=== PATIENT | male | born 1940 | race Hispanic/Latino ===

== ENCOUNTER 2020-10-04 05:27 | Inpatient (IN) | payer MEDICARE ==
[2020-10-02 12:33] LABS: BASOPHILS # (AUTO) 0.1 (0.0-0.1); BASOPHILS % 0.7 % (0.0-1.0); EOSINOPHILS # (AUTO) 0.1 (0.0-0.4); EOSINOPHILS % 1.2 % (0.0-6.0); HEMOGLOBIN 14.5 g/dL (14.0-18.0); LYMPHOCYTES # (AUTO) 1.5 (1.0-3.2); LYMPHOCYTES % 19.4 % (18.0-39.1); MEAN CORPUSCULAR HEMOGLOBIN 29.8 pg (28-32); MEAN CORPUSCULAR HGB CONC 31.5 g/dL (31-35); MEAN CORPUSCULAR VOLUME 94.7 fL (81-99); MONOCYTES # (AUTO) 0.6 (0.2-0.8); MONOCYTES % 8.3 % (4.4-11.3); NEUTROPHILS # (AUTO) 5.4 (2.1-6.9); NEUTROPHILS % 70.1 % (38.7-80.0); PLATELET COUNT 136 x10e3/uL (140-360); RED BLOOD COUNT 4.86 x10e6/uL (4.3-5.7); RED CELL DISTRIBUTION WIDTH 13.5 % (11.7-14.4)
[2020-10-02 12:59] LABS: ANION GAP 14.2 mmol/L (8-16); CALCIUM 8.9 mg/dL (8.4-10.2); CREATININE, SERUM 1.65 mg/dL (0.72-1.25); POTASSIUM 5.2 mmol/L (3.5-5.1)
[2020-10-04] VITALS (11 sets, daily range): BP systolic 100–126; BP diastolic 51–58
[~2020-10-04] VITALS: Ht 177.8 cm
[~2020-10-04 05:27] MED LIST: ATORVASTATIN CA10 MG PO; FLOMAX0.4 MG PO; GLIPIZIDE ER2.5 MG PO; HYDRALAZINE HCL50 MG PO; LISINOPRIL10 MG PO; MELOXICAM7.5 MG PO; NEURONTIN100 MG PO; NIFEDIPINE10 MG PO; ULTRAM50 MG PO
[2020-10-04] MEDS ORDERED: PIPERACILLIN/TAZOBAC 3.375 GM VIAL ONE (06:10)
[2020-10-04] MEDS ORDERED: GENTAMICIN 80MG/NS 100 ML 200 ML IV ONE (06:10)
[2020-10-04] MEDS ORDERED: SODIUM CHLORIDE 0.9% 50ML 50 ML ONE (06:12)
[2020-10-04] MEDS ORDERED: IOPAMIDOL 300MG/ML 50ML INFUS..BTL IV ONE (08:27)
[2020-10-04] MEDS ORDERED: B&O 60MG R/S 60 MG SUPP PR ONE (08:27)
[2020-10-04] MEDS ORDERED: FENTANYL CITRATE/PF 100MCG/2 ML INJ ONE (11:58)
[2020-10-04] MEDS ORDERED: B&O 60MG R/S 60 MG SUPP PR PRN (12:00)
[2020-10-04] MEDS ORDERED: DIPHENHYDRAMINE HCL 25 MG CAP PO PRN (12:00)
[2020-10-04] MEDS ORDERED: ONDANSETRON HCL INJ 2MG/ML 2ML 2 MG/ML VIAL IV PRN (12:00)
[2020-10-04] MEDS ORDERED: ACETAMINOPHEN/CODEINE 300MG - 30MG TAB PO PRN (12:00)
[2020-10-04] MEDS ORDERED: PHENAZOPYRIDINE HCL 100 MG TAB PO PRN (12:00)
[2020-10-04] MEDS ORDERED: POVIDONE IODINE 0.05% 0.05 % ML PO ONE (12:21)
[2020-10-04] MEDS ORDERED: ROCURONIUM BROMIDE 10 MG/ML 5ML VIAL IV ONE (12:21)
[2020-10-04] MEDS ORDERED: LIDOCAINE HCL 2% LOCAL INJ 5 ML SDV VIAL INJ ONE (12:21)
[2020-10-04] MEDS ORDERED: ONDANSETRON HCL INJ 2MG/ML 2ML 2 MG/ML VIAL ONE (12:21)
[2020-10-04] MEDS ORDERED: PROPOFOL IV EMULSION 10 MG/ML 20 ML VIAL ONE (12:21)
[2020-10-04] MEDS ORDERED: NEOSTIGMINE 1 MG/ML 10ML VIAL ONE (12:21)
[2020-10-04] MEDS ORDERED: GLYCOPYRROLATE INJ 0.2 MG/ML VIAL ONE (12:21)
[2020-10-04] MEDS ORDERED: SEVOFLURANE INHAL SOLN 250 ML PEN BTL ONE (12:21)
[2020-10-04 13:10] LABS: BASOPHILS % 0.4 % (0.0-1.0); EOSINOPHILS # (AUTO) 0.1 (0.0-0.4); EOSINOPHILS % 1.9 % (0.0-6.0); HEMATOCRIT 44.5 % (38.2-49.6); HEMOGLOBIN 13.8 g/dL (14.0-18.0); LYMPHOCYTES # (AUTO) 1.7 (1.0-3.2); LYMPHOCYTES % 24.1 % (18.0-39.1); MEAN CORPUSCULAR HEMOGLOBIN 29.7 pg (28-32); MEAN CORPUSCULAR VOLUME 95.7 fL (81-99); MONOCYTES # (AUTO) 0.5 (0.2-0.8); MONOCYTES % 7.2 % (4.4-11.3); NEUTROPHILS # (AUTO) 4.6 (2.1-6.9); NEUTROPHILS % 66.1 % (38.7-80.0); PLATELET COUNT 117 x10e3/uL (140-360); RED BLOOD COUNT 4.65 x10e6/uL (4.3-5.7); RED CELL DISTRIBUTION WIDTH 13.7 % (11.7-14.4)
[2020-10-04 13:31] LABS: ANION GAP 10.9 mmol/L (8-16); CALCIUM 7.9 mg/dL (8.4-10.2); CREATININE, SERUM 1.49 mg/dL (0.72-1.25); POTASSIUM 4.9 mmol/L (3.5-5.1)
[2020-10-04] MEDS: D5.45%NS/KCL 20MEQ 1,000 ML IV SCH ×2 (15:29→20:00)
[2020-10-04] MEDS: PIPERACILLIN/TAZOBACTAM 2.25 GM in SODIUM CHLORIDE 0.9% 50ML 50 ML IV SCH ×2 (15:29→22:55)
[2020-10-04] MEDS: DOCUSATE SODIUM 100 MG CAP PO SCH (15:29)
[2020-10-04] MEDS ORDERED: COVID-19 VACC, MRNA(MODERNA)/PF 100 MCG/0.5 ML VIAL IM ONE ×2 (16:45→17:00)
[2020-10-05] VITALS (10 sets, daily range): BP systolic 100–119; BP diastolic 47–59
[2020-10-05] MEDS: D5.45%NS/KCL 20MEQ 1,000 ML IV SCH (01:12)
[2020-10-05 05:52] LABS: BASOPHILS % 0.6 % (0.0-1.0); EOSINOPHILS # (AUTO) 0.2 (0.0-0.4); EOSINOPHILS % 2.1 % (0.0-6.0); HEMATOCRIT 39.2 % (38.2-49.6); HEMOGLOBIN 12.2 g/dL (14.0-18.0); LYMPHOCYTES # (AUTO) 0.8 (1.0-3.2); LYMPHOCYTES % 11.3 % (18.0-39.1); MEAN CORPUSCULAR HEMOGLOBIN 29.8 pg (28-32); MEAN CORPUSCULAR HGB CONC 31.1 g/dL (31-35); MEAN CORPUSCULAR VOLUME 95.6 fL (81-99); MONOCYTES # (AUTO) 0.6 (0.2-0.8); MONOCYTES % 8.3 % (4.4-11.3); NEUTROPHILS # (AUTO) 5.5 (2.1-6.9); NEUTROPHILS % 77.3 % (38.7-80.0); PLATELET COUNT 100 x10e3/uL (140-360); RED CELL DISTRIBUTION WIDTH 13.6 % (11.7-14.4)
[2020-10-05 06:29] LABS: ANION GAP 11.3 mmol/L (8-16); CALCIUM 7.5 mg/dL (8.4-10.2); CREATININE, SERUM 1.49 mg/dL (0.72-1.25); POTASSIUM 5.3 mmol/L (3.5-5.1)
[2020-10-05] MEDS: PIPERACILLIN/TAZOBACTAM 2.25 GM in SODIUM CHLORIDE 0.9% 50ML 50 ML IV SCH ×3 (06:39→22:55)
[2020-10-05] MEDS ORDERED: TRAMADOL HCL 50 MG TAB PO PRN (08:45)
[2020-10-05] MEDS ORDERED: DEXTROSE 50% SYRINGE 50 ML IV PRN (08:45)
[2020-10-05] MEDS ORDERED: DEXTROSE 5% 1,000 ML IV SCH (09:00)
[2020-10-05] MEDS: DOCUSATE SODIUM 100 MG CAP PO SCH ×2 (09:20→15:15)
[2020-10-05] MEDS: GABAPENTIN 100 MG CAP PO SCH ×3 (09:22→20:52)
[2020-10-05] MEDS: TAMSULOSIN HCL 0.4 MG CAP PO SCH (09:22)
[2020-10-05] MEDS: GLIPIZIDE 2.5 MG TABCR PO SCH (10:03)
[2020-10-05] MEDS: INSULIN LISPRO 100 UNIT/1 ML 3ML VIAL SQ SCH ×3 (11:30→21:00)
[2020-10-05] MEDS ORDERED: SODIUM CHLORIDE 0.9% 50ML 50 ML ONE (15:25)
[2020-10-05] MEDS ORDERED: SODIUM CHLORIDE 0.9% 1000ML 1,000 ML ONE (15:27)
[2020-10-05] MEDS ORDERED: ATORVASTATIN 10 MG TAB PO SCH (21:00)
[2020-10-06] VITALS (8 sets, daily range): BP systolic 123–146; BP diastolic 51–63
[2020-10-06 05:55] LABS: BASOPHILS % 0.7 % (0.0-1.0); EOSINOPHILS # (AUTO) 0.2 (0.0-0.4); EOSINOPHILS % 3.5 % (0.0-6.0); HEMATOCRIT 39.1 % (38.2-49.6); LYMPHOCYTES # (AUTO) 1.4 (1.0-3.2); LYMPHOCYTES % 23.9 % (18.0-39.1); MEAN CORPUSCULAR HEMOGLOBIN 29.7 pg (28-32); MEAN CORPUSCULAR HGB CONC 30.7 g/dL (31-35); MEAN CORPUSCULAR VOLUME 96.8 fL (81-99); MONOCYTES # (AUTO) 0.6 (0.2-0.8); MONOCYTES % 9.7 % (4.4-11.3); NEUTROPHILS # (AUTO) 3.7 (2.1-6.9); NEUTROPHILS % 61.9 % (38.7-80.0); PLATELET COUNT 92 x10e3/uL (140-360); RED BLOOD COUNT 4.04 x10e6/uL (4.3-5.7); RED CELL DISTRIBUTION WIDTH 13.5 % (11.7-14.4)
[2020-10-06] MEDS: PIPERACILLIN/TAZOBACTAM 2.25 GM in SODIUM CHLORIDE 0.9% 50ML 50 ML IV SCH ×2 (06:00→14:00)
[2020-10-06 06:15] LABS: ANION GAP 11.8 mmol/L (8-16); CALCIUM 7.9 mg/dL (8.4-10.2); CREATININE, SERUM 1.56 mg/dL (0.72-1.25); POTASSIUM 4.8 mmol/L (3.5-5.1)
[2020-10-06] MEDS: INSULIN LISPRO 100 UNIT/1 ML 3ML VIAL SQ SCH ×3 (07:30→16:30)
[2020-10-06] MEDS: GLIPIZIDE 2.5 MG TABCR PO SCH (08:51)
[2020-10-06] MEDS: GABAPENTIN 100 MG CAP PO SCH ×2 (08:52→15:42)
[2020-10-06] MEDS: TAMSULOSIN HCL 0.4 MG CAP PO SCH (08:52)
[2020-10-06] MEDS: DOCUSATE SODIUM 100 MG CAP PO SCH ×3 (08:52→17:40)
[2020-10-06] MEDS ORDERED: LEVOFLOXACIN250 MG PO (15:08)
== END 2020-10-06 18:39 | disposition home or self-care (01) | DRG 713 ==
LOC: OR 05:27 → PACU V 12:02 → MED/SURG 13:09
PROVIDERS: ADMIT Urology; ATTEND Urology
PROC: BT141ZZ Fluoroscopy of Kidneys, Ureters and Bladder using Low Osmolar Contrast (ICD-10-PCS; 2020-10-04)
PROC: 0VB07ZZ Excision of Prostate, Via Natural or Artificial Opening (ICD-10-PCS; principal; 2020-10-04 08:30)
PROC: 0T788ZZ Dilation of Bilateral Ureters, Via Natural or Artificial Opening Endoscopic (ICD-10-PCS; 2020-10-04 08:30)
DX: N40.1 Benign prostatic hyperplasia with lower urinary tract symptoms (principal); N39.0 Urinary tract infection, site not specified; N32.0 Bladder-neck obstruction; N32.81 Overactive bladder; E11.9 Type 2 diabetes mellitus without complications; E66.9 Obesity, unspecified; Z68.33 Body mass index [BMI] 33.0-33.9, adult; E11.22 Type 2 diabetes mellitus with diabetic chronic kidney disease; I12.9 Hypertensive chronic kidney disease with stage 1 through stage 4 chronic kidney disease, or unspecified chronic kidney disease; N18.2 Chronic kidney disease, stage 2 (mild); R33.8 Other retention of urine; Z20.822 Contact with and (suspected) exposure to COVID-19
CPT/HCPCS: 36415; 71046; 74420; 80048; 82948; 83735; 84132; 85025; 91301; 93005; 96372; 99251; C1758; J1580; J2001; J2405; J2543; J2710; J3010; J7030; U0002

== ENCOUNTER → 2021-06-22 | Outpatient (CLI) | payer MEDICARE ==
[~2021-06-22] MED LIST changes: +LEVOFLOXACIN250 MG PO
== END ==
LOC: CT 12:27
PROVIDERS: ATTEND Family Medicine
DX: R10.84 Generalized abdominal pain (principal)
CPT/HCPCS: 74176

== ENCOUNTER 2021-11-27 13:02 | Emergency (ER) | payer MEDICARE ==
[~2021-11-27] VITALS: Ht 177.8 cm; Wt 107.0 kg
[2021-11-27] MEDS ORDERED: HYDROCODONE/APAP 5MG-325MG TAB PO ONE (13:30)
[2021-11-27 14:05] LABS: BASOPHILS # (AUTO) 0.1 (0.0-0.1); BASOPHILS % 0.6 % (0.0-1.0); EOSINOPHILS # (AUTO) 0.2 (0.0-0.4); EOSINOPHILS % 1.8 % (0.0-6.0); HEMATOCRIT 45.9 % (38.2-49.6); HEMOGLOBIN 14.3 g/dL (14.0-18.0); LYMPHOCYTES # (AUTO) 2.5 (1.0-3.2); LYMPHOCYTES % 29.6 % (18.0-39.1); MEAN CORPUSCULAR HEMOGLOBIN 30.2 pg (28-32); MEAN CORPUSCULAR HGB CONC 31.2 g/dL (31-35); MEAN CORPUSCULAR VOLUME 96.8 fL (81-99); MONOCYTES # (AUTO) 0.6 (0.2-0.8); MONOCYTES % 7.4 % (4.4-11.3); PLATELET COUNT 136 x10e3/uL (140-360); RED BLOOD COUNT 4.74 x10e6/uL (4.3-5.7); RED CELL DISTRIBUTION WIDTH 13.2 % (11.7-14.4)
[2021-11-27 14:19] LABS: ALBUMIN 3.7 g/dL (3.5-5.0); ALBUMIN/GLOBULIN RATIO 0.9 (0.8-2.0); CREATININE, SERUM 1.48 mg/dL (0.72-1.25)
[2021-11-27 14:26] LABS: CREATINE KINASE MB 5.5 ng/mL (0-5.0)
== END 2021-11-27 17:05 | disposition home or self-care (01) ==
LOC: ER 13:09
DX: M79.10 Myalgia, unspecified site (principal); R51.9 Headache, unspecified; I10 Essential (primary) hypertension; E11.9 Type 2 diabetes mellitus without complications; I25.2 Old myocardial infarction; I25.10 Atherosclerotic heart disease of native coronary artery without angina pectoris; Z88.8 Allergy status to other drugs, medicaments and biological substances; Z91.041 Radiographic dye allergy status; Z79.84 Long term (current) use of oral hypoglycemic drugs; Z79.899 Other long term (current) drug therapy
CPT/HCPCS: 36415; 70450; 71045; 80053; 82550; 82553; 84484; 85025; 99284

== ENCOUNTER 2022-07-23 19:16 | Emergency (ER) | payer MEDICARE, OTHER ==
[~2022-07-23] VITALS: Ht 177.8 cm; Wt 107.0 kg
[2022-07-23] MEDS ORDERED: ULTRAM 50MG50 MG PO (21:47)
== END 2022-07-23 21:50 | disposition home or self-care (01) ==
LOC: ER 19:30
DX: S00.83XA Contusion of other part of head, initial encounter (principal); R07.89 Other chest pain; R10.10 Upper abdominal pain, unspecified; W01.0XXA Fall on same level from slipping, tripping and stumbling without subsequent striking against object, initial encounter; Y93.01 Activity, walking, marching and hiking; Y92.89 Other specified places as the place of occurrence of the external cause; I10 Essential (primary) hypertension; E11.9 Type 2 diabetes mellitus without complications; I25.10 Atherosclerotic heart disease of native coronary artery without angina pectoris; K21.9 Gastro-esophageal reflux disease without esophagitis
CPT/HCPCS: 70450; 71250; 72125; 74176; 99283

== ENCOUNTER 2022-12-09 13:33 | Inpatient (IN) | payer MEDICARE ==
[~2022-12-09] VITALS: Ht 175.3 cm; Wt 111.3 kg
[~2022-12-09 13:33] MED LIST changes: +ULTRAM 50MG50 MG PO
[2022-12-09 14:12] LABS: BASOPHILS % 0.5 % (0.0-1.0); EOSINOPHILS # (AUTO) 0.2 (0.0-0.4); EOSINOPHILS % 2.7 % (0.0-6.0); HEMATOCRIT 41.8 % (38.2-49.6); HEMOGLOBIN 13.3 g/dL (14.0-18.0); LYMPHOCYTES % 32.6 % (18.0-39.1); MEAN CORPUSCULAR HEMOGLOBIN 29.8 pg (28-32); MEAN CORPUSCULAR HGB CONC 31.8 g/dL (31-35); MEAN CORPUSCULAR VOLUME 93.7 fL (81-99); MONOCYTES # (AUTO) 0.5 (0.2-0.8); NEUTROPHILS # (AUTO) 3.3 (2.1-6.9); PLATELET COUNT 106 x10e3/uL (140-360); RED BLOOD COUNT 4.46 x10e6/uL (4.3-5.7); RED CELL DISTRIBUTION WIDTH 14.5 % (11.7-14.4)
[2022-12-09 14:17] LABS: INR 0.93; PROTHROMBIN TIME 12.9 seconds (11.9-14.5)
[2022-12-09 14:18] LABS: PARTIAL THROMBOPLASTIN TIME 28.6 seconds (23.8-35.5)
[2022-12-09 14:28] LABS: ALBUMIN/GLOBULIN RATIO 1.2 (0.8-2.0); ANION GAP 15.9 mmol/L (8-16); CALCIUM 8.6 mg/dL (8.4-10.2); CREATININE, SERUM 1.83 mg/dL (0.72-1.25); POTASSIUM 4.9 mmol/L (3.5-5.1)
[2022-12-09] MEDS: Morphine 2mg Syringe 2 MG/ML SYR IV PRN ×2 (17:22→21:17)
[2022-12-09] MEDS: ONDANSETRON HCL INJ 2MG/ML 2ML 2 MG/ML VIAL IV PRN ×2 (17:23→21:17)
[2022-12-09] MEDS: FAMOTIDINE 20 MG/2 ML VIAL IV SCH (17:23)
[2022-12-09 18:08] VITALS: BP 143/71; PULSE 58; RESP 18; TEMP 97.3; O2SAT 100
[2022-12-09 19:12] VITALS: BP 143/71; PULSE 58; RESP 18; TEMP 97.3; O2SAT 100
[2022-12-09] MEDS ORDERED: ESCITALOPRAM OX20 MG PO (19:53)
[2022-12-09] MEDS ORDERED: GLIPIZIDE ER10 MG PO (19:53)
[2022-12-09] MEDS ORDERED: LISINOPRIL20 MG PO (19:53)
[2022-12-09] MEDS ORDERED: CLOPIDOGREL75 MG PO (19:53)
[2022-12-09] MEDS ORDERED: ATORVASTATIN CA40 MG PO (19:53)
[2022-12-09] MEDS ORDERED: GABAPENTIN100 MG PO (19:53)
[2022-12-09 19:56] VITALS: BP 143/71; PULSE 58; RESP 18; TEMP 97.3; O2SAT 100
[2022-12-09 21:38] VITALS: BP 152/70; PULSE 63; RESP 21; TEMP 97.8; O2SAT 100
[2022-12-10] VITALS (9 sets, daily range): BP systolic 126–172; BP diastolic 56–81; PULSE 54–68; RESP 16–21; TEMP 97.3–98.9; O2SAT 94–100
[2022-12-10] MEDS ORDERED: LISINOPRIL 20 MG TAB PO SCH (05:00)
[2022-12-10 05:13] LABS: BASOPHILS % 0.4 % (0.0-1.0); EOSINOPHILS # (AUTO) 0.2 (0.0-0.4); EOSINOPHILS % 3.3 % (0.0-6.0); HEMATOCRIT 41.1 % (38.2-49.6); HEMOGLOBIN 12.8 g/dL (14.0-18.0); LYMPHOCYTES # (AUTO) 1.6 (1.0-3.2); MEAN CORPUSCULAR HEMOGLOBIN 30.1 pg (28-32); MEAN CORPUSCULAR HGB CONC 31.1 g/dL (31-35); MEAN CORPUSCULAR VOLUME 96.7 fL (81-99); MONOCYTES # (AUTO) 0.5 (0.2-0.8); MONOCYTES % 9.6 % (4.4-11.3); NEUTROPHILS # (AUTO) 2.7 (2.1-6.9); NEUTROPHILS % 54.5 % (38.7-80.0); PLATELET COUNT 93 x10e3/uL (140-360); RED BLOOD COUNT 4.25 x10e6/uL (4.3-5.7); RED CELL DISTRIBUTION WIDTH 14.4 % (11.7-14.4)
[2022-12-10] MEDS: ACETAMINOPHEN 325 MG TAB PO PRN (05:28)
[2022-12-10] MEDS: HYDRALAZINE HCL 25 MG TAB PO SCH ×2 (05:28→17:00)
[2022-12-10 05:36] LABS: ALBUMIN 3.3 g/dL (3.5-5.0); ALBUMIN/GLOBULIN RATIO 1.1 (0.8-2.0); ANION GAP 13.6 mmol/L (8-16); CALCIUM 8.2 mg/dL (8.4-10.2); CHOL/HDL RATIO 4.6 (3.9-4.7); CREATININE, SERUM 1.57 mg/dL (0.72-1.25); POTASSIUM 4.6 mmol/L (3.5-5.1)
[2022-12-10] MEDS: FAMOTIDINE 20 MG/2 ML VIAL IV SCH (05:40)
[2022-12-10] MEDS ORDERED: ATORVASTATIN 40 MG TAB PO SCH (09:00)
[2022-12-10] MEDS: NIFEDIPINE CR 30 MG TAB PO SCH (09:50)
[2022-12-10] MEDS: ASPIRIN 81 MG ENTERIC COATED PO SCH (10:04)
[2022-12-10] MEDS: CLOPIDOGREL BISULFATE 75 MG TAB PO SCH (10:04)
[2022-12-10] MEDS: GLIPIZIDE 5 MG TAB ER PO SCH ×2 (10:04→17:00)
[2022-12-10] MEDS: TAMSULOSIN HCL 0.4 MG CAP PO SCH (10:04)
[2022-12-10] MEDS: ESCITALOPRAM OXALATE 10 MG TAB PO SCH (10:04)
[2022-12-10] MEDS: GABAPENTIN 100 MG CAP PO SCH ×3 (10:04→20:34)
[2022-12-11] VITALS (7 sets, daily range): BP systolic 109–143; BP diastolic 42–59; PULSE 47–74; RESP 16–24; TEMP 97.6–98.1; O2SAT 96–100
[2022-12-11] MEDS: LISINOPRIL 10 MG TAB PO SCH ×2 (05:25→17:00)
[2022-12-11 05:50] LABS: BASOPHILS # (AUTO) 0.1 (0.0-0.1); BASOPHILS % 0.8 % (0.0-1.0); EOSINOPHILS # (AUTO) 0.2 (0.0-0.4); EOSINOPHILS % 2.1 % (0.0-6.0); HEMATOCRIT 40.6 % (38.2-49.6); HEMOGLOBIN 12.7 g/dL (14.0-18.0); LYMPHOCYTES # (AUTO) 2.4 (1.0-3.2); LYMPHOCYTES % 33.2 % (18.0-39.1); MEAN CORPUSCULAR HEMOGLOBIN 29.5 pg (28-32); MEAN CORPUSCULAR HGB CONC 31.3 g/dL (31-35); MEAN CORPUSCULAR VOLUME 94.2 fL (81-99); MONOCYTES # (AUTO) 0.5 (0.2-0.8); MONOCYTES % 7.3 % (4.4-11.3); NEUTROPHILS % 56.5 % (38.7-80.0); PLATELET COUNT 104 x10e3/uL (140-360); RED BLOOD COUNT 4.31 x10e6/uL (4.3-5.7); RED CELL DISTRIBUTION WIDTH 14.3 % (11.7-14.4)
[2022-12-11 06:17] LABS: ANION GAP 11.7 mmol/L (8-16); CALCIUM 8.5 mg/dL (8.4-10.2); CREATININE, SERUM 1.63 mg/dL (0.72-1.25); POTASSIUM 4.7 mmol/L (3.5-5.1)
[2022-12-11] MEDS ORDERED: DEXTROSE 50% SYRINGE 50 ML IV PRN (08:30)
[2022-12-11] MEDS: ASPIRIN 81 MG ENTERIC COATED PO SCH (08:37)
[2022-12-11] MEDS: CLOPIDOGREL BISULFATE 75 MG TAB PO SCH (08:37)
[2022-12-11] MEDS: NIFEDIPINE CR 30 MG TAB PO SCH (08:37)
[2022-12-11] MEDS: ESCITALOPRAM OXALATE 10 MG TAB PO SCH (08:37)
[2022-12-11] MEDS: GABAPENTIN 100 MG CAP PO SCH ×3 (08:37→21:23)
[2022-12-11] MEDS: TAMSULOSIN HCL 0.4 MG CAP PO SCH (08:37)
[2022-12-11] MEDS: INSULIN LISPRO 100 UNIT/1 ML 3ML VIAL SQ SCH ×3 (11:30→21:00)
[2022-12-12] VITALS (8 sets, daily range): BP systolic 127–148; BP diastolic 41–85; PULSE 54–81; RESP 16–24; TEMP 97.7–98.4; O2SAT 95–98
[2022-12-12] MEDS: LISINOPRIL 10 MG TAB PO SCH ×2 (06:00→18:01)
[2022-12-12 06:18] LABS: BASOPHILS % 0.6 % (0.0-1.0); EOSINOPHILS # (AUTO) 0.2 (0.0-0.4); EOSINOPHILS % 2.2 % (0.0-6.0); HEMOGLOBIN 12.7 g/dL (14.0-18.0); LYMPHOCYTES # (AUTO) 1.4 (1.0-3.2); LYMPHOCYTES % 20.8 % (18.0-39.1); MEAN CORPUSCULAR HEMOGLOBIN 29.8 pg (28-32); MEAN CORPUSCULAR VOLUME 96.2 fL (81-99); MONOCYTES # (AUTO) 0.6 (0.2-0.8); MONOCYTES % 8.1 % (4.4-11.3); NEUTROPHILS # (AUTO) 4.6 (2.1-6.9); PLATELET COUNT 92 x10e3/uL (140-360); RED BLOOD COUNT 4.26 x10e6/uL (4.3-5.7); RED CELL DISTRIBUTION WIDTH 14.2 % (11.7-14.4)
[2022-12-12 06:52] LABS: INR 1.01; PROTHROMBIN TIME 13.8 seconds (11.9-14.5)
[2022-12-12 06:53] LABS: PARTIAL THROMBOPLASTIN TIME 31.6 seconds (23.8-35.5)
[2022-12-12] MEDS: INSULIN LISPRO 100 UNIT/1 ML 3ML VIAL SQ SCH ×4 (07:30→21:53)
[2022-12-12] MEDS: GABAPENTIN 100 MG CAP PO SCH ×3 (08:03→21:45)
[2022-12-12] MEDS: TAMSULOSIN HCL 0.4 MG CAP PO SCH (09:00)
[2022-12-12] MEDS: ESCITALOPRAM OXALATE 10 MG TAB PO SCH (09:00)
[2022-12-12] MEDS ORDERED: CLINDAMYCIN 600MG / 50ML 50 ML IV PRN (10:00)
[2022-12-12] MEDS ORDERED: SODIUM CHLORIDE 0.9% 1000ML 2,000 ML ONE (12:32)
[2022-12-12] MEDS ORDERED: GENTAMICIN SULFATE 40 MG/ML 2 ML VIAL ONE (12:39)
[2022-12-12] MEDS ORDERED: FENTANYL CITRATE/PF 100MCG/2 ML INJ ONE (12:39)
[2022-12-12] MEDS ORDERED: MIDAZOLAM HCL 2 MG/2 ML VIAL ONE (12:39)
[2022-12-12] MEDS ORDERED: LIDOCAINE HCL 2% LOCAL 20 ML VIAL ONE (12:40)
[2022-12-12] MEDS ORDERED: Vancomycin IV 1 GM VIAL ONE (12:40)
[2022-12-12] MEDS ORDERED: SODIUM CHLORIDE 0.9% 1000ML 1,000 ML ONE (12:40)
[2022-12-12] MEDS ORDERED: SODIUM CHLORIDE 0.9% 250ML 250 ML ONE (12:40)
[2022-12-12] MEDS ORDERED: HYDROXYZINE HCL 25 MG TAB PO PRN (14:45)
[2022-12-12] MEDS: MINOCYCLINE HCL 50 MG CAP PO SCH (18:01)
[2022-12-13] MEDS: LISINOPRIL 10 MG TAB PO SCH ×2 (05:48→16:51)
[2022-12-13 08:07] VITALS: BP 156/80; PULSE 61; RESP 19; TEMP 97.5; O2SAT 98
[2022-12-13 08:17] VITALS: BP 156/80; PULSE 61; RESP 19; TEMP 97.5; O2SAT 98
[2022-12-13] MEDS: GABAPENTIN 100 MG CAP PO SCH ×3 (08:31→21:11)
[2022-12-13] MEDS: ESCITALOPRAM OXALATE 10 MG TAB PO SCH (08:31)
[2022-12-13] MEDS: TAMSULOSIN HCL 0.4 MG CAP PO SCH (08:31)
[2022-12-13] MEDS: MINOCYCLINE HCL 50 MG CAP PO SCH ×2 (08:31→21:11)
[2022-12-13] MEDS: INSULIN LISPRO 100 UNIT/1 ML 3ML VIAL SQ SCH ×4 (08:32→21:00)
[2022-12-13 11:43] VITALS: BP 125/57; PULSE 65; RESP 20; TEMP 97.9; O2SAT 97
[2022-12-13 15:51] VITALS: BP 145/64; PULSE 58; RESP 17; TEMP 97.9; O2SAT 96
[2022-12-13] MEDS: ACETAMINOPHEN 325 MG TAB PO PRN (18:55)
[2022-12-13 20:00] VITALS: BP 128/115; PULSE 62; RESP 19; TEMP 97.9; O2SAT 98
[2022-12-14] VITALS (7 sets, daily range): BP systolic 108–136; BP diastolic 54–93; PULSE 57–65; RESP 16–20; TEMP 97.5–98.7; O2SAT 96–98
[2022-12-14] MEDS: LISINOPRIL 10 MG TAB PO SCH (05:01)
[2022-12-14] MEDS: INSULIN LISPRO 100 UNIT/1 ML 3ML VIAL SQ SCH ×4 (07:30→21:02)
[2022-12-14 07:54] LABS: BASOPHILS % 0.4 % (0.0-1.0); EOSINOPHILS # (AUTO) 0.2 (0.0-0.4); EOSINOPHILS % 3.2 % (0.0-6.0); HEMATOCRIT 42.7 % (38.2-49.6); HEMOGLOBIN 13.6 g/dL (14.0-18.0); LYMPHOCYTES # (AUTO) 1.7 (1.0-3.2); LYMPHOCYTES % 23.9 % (18.0-39.1); MEAN CORPUSCULAR HEMOGLOBIN 29.9 pg (28-32); MEAN CORPUSCULAR HGB CONC 31.9 g/dL (31-35); MEAN CORPUSCULAR VOLUME 93.8 fL (81-99); MONOCYTES # (AUTO) 0.6 (0.2-0.8); MONOCYTES % 8.7 % (4.4-11.3); NEUTROPHILS # (AUTO) 4.4 (2.1-6.9); NEUTROPHILS % 63.5 % (38.7-80.0); PLATELET COUNT 108 x10e3/uL (140-360); RED BLOOD COUNT 4.55 x10e6/uL (4.3-5.7); RED CELL DISTRIBUTION WIDTH 14.2 % (11.7-14.4)
[2022-12-14 08:12] LABS: ANION GAP 12.5 mmol/L (8-16); CALCIUM 8.7 mg/dL (8.4-10.2); CREATININE, SERUM 1.31 mg/dL (0.72-1.25); POTASSIUM 5.5 mmol/L (3.5-5.1)
[2022-12-14] MEDS: GABAPENTIN 100 MG CAP PO SCH ×3 (09:40→20:53)
[2022-12-14] MEDS: ONDANSETRON HCL 4 MG ORAL DISINTEGRATING TAB PO PRN (09:40)
[2022-12-14] MEDS: MINOCYCLINE HCL 50 MG CAP PO SCH ×2 (09:40→20:53)
[2022-12-14] MEDS: ESCITALOPRAM OXALATE 10 MG TAB PO SCH (09:40)
[2022-12-14] MEDS: Morphine 2mg Syringe 2 MG/ML SYR IV PRN ×3 (09:41→20:53)
[2022-12-14] MEDS: TAMSULOSIN HCL 0.4 MG CAP PO SCH (09:41)
[2022-12-15] VITALS (8 sets, daily range): BP systolic 102–149; BP diastolic 44–135; PULSE 58–103; RESP 16–19; TEMP 97–98.6; O2SAT 93–100
[2022-12-15 05:38] LABS: BASOPHILS % 0.6 % (0.0-1.0); EOSINOPHILS # (AUTO) 0.1 (0.0-0.4); EOSINOPHILS % 2.1 % (0.0-6.0); HEMATOCRIT 46.4 % (38.2-49.6); HEMOGLOBIN 14.5 g/dL (14.0-18.0); LYMPHOCYTES # (AUTO) 1.2 (1.0-3.2); LYMPHOCYTES % 18.8 % (18.0-39.1); MEAN CORPUSCULAR HEMOGLOBIN 30.1 pg (28-32); MEAN CORPUSCULAR HGB CONC 31.3 g/dL (31-35); MEAN CORPUSCULAR VOLUME 96.5 fL (81-99); MONOCYTES # (AUTO) 0.6 (0.2-0.8); MONOCYTES % 8.5 % (4.4-11.3); NEUTROPHILS # (AUTO) 4.6 (2.1-6.9); NEUTROPHILS % 69.5 % (38.7-80.0); PLATELET COUNT 100 x10e3/uL (140-360); RED BLOOD COUNT 4.81 x10e6/uL (4.3-5.7); RED CELL DISTRIBUTION WIDTH 14.1 % (11.7-14.4)
[2022-12-15 05:50] LABS: ANION GAP 12.9 mmol/L (8-16); CALCIUM 8.9 mg/dL (8.4-10.2); CREATININE, SERUM 1.42 mg/dL (0.72-1.25); POTASSIUM 5.9 mmol/L (3.5-5.1)
[2022-12-15] MEDS: INSULIN LISPRO 100 UNIT/1 ML 3ML VIAL SQ SCH ×4 (07:30→20:18)
[2022-12-15] MEDS: TAMSULOSIN HCL 0.4 MG CAP PO SCH (08:31)
[2022-12-15] MEDS: ESCITALOPRAM OXALATE 10 MG TAB PO SCH (08:31)
[2022-12-15] MEDS: GABAPENTIN 100 MG CAP PO SCH ×3 (08:31→20:17)
[2022-12-15] MEDS: MINOCYCLINE HCL 50 MG CAP PO SCH ×2 (08:31→20:17)
[2022-12-15] MEDS ORDERED: BISACODYL 10 MG SUPP PR PRN (09:45)
[2022-12-15] MEDS ORDERED: MAGNESIUM HYDROXIDE 30 ML UDC PO PRN (09:45)
[2022-12-15] MEDS ORDERED: SOD POLYSTYRENE SULFONATE SUSP 15 GM/60 ML BTL PO ONE (10:00)
[2022-12-15] MEDS: SENNA-S TABLET PO SCH ×2 (10:13→16:30)
[2022-12-15] MEDS: LIDOCAINE 4% PATCH TP SCH (10:13)
[2022-12-15] MEDS: Morphine 2mg Syringe 2 MG/ML SYR IV PRN (13:49)
[2022-12-15] MEDS: ONDANSETRON HCL 4 MG ORAL DISINTEGRATING TAB PO PRN (13:49)
[2022-12-15] MEDS: ACETAMINOPHEN 325 MG TAB PO PRN (16:33)
[2022-12-15] MEDS: ACETAMINOPHEN/CODEINE 300MG - 30MG TAB PO PRN (20:18)
[2022-12-16] VITALS (7 sets, daily range): BP systolic 93–127; BP diastolic 52–60; PULSE 58–71; RESP 18–19; TEMP 97.6–98.6; O2SAT 94–100
[2022-12-16 06:41] LABS: ANION GAP 11.6 mmol/L (8-16); CREATININE, SERUM 1.75 mg/dL (0.72-1.25); POTASSIUM 4.6 mmol/L (3.5-5.1)
[2022-12-16] MEDS: INSULIN LISPRO 100 UNIT/1 ML 3ML VIAL SQ SCH ×4 (08:05→21:55)
[2022-12-16] MEDS: MINOCYCLINE HCL 50 MG CAP PO SCH ×2 (09:31→20:05)
[2022-12-16] MEDS: TAMSULOSIN HCL 0.4 MG CAP PO SCH (09:31)
[2022-12-16] MEDS: SODIUM CHLORIDE 0.9% 1000ML 1,000 ML IV SCH ×2 (09:31→20:05)
[2022-12-16] MEDS: GABAPENTIN 100 MG CAP PO SCH ×3 (09:31→20:05)
[2022-12-16] MEDS: ESCITALOPRAM OXALATE 10 MG TAB PO SCH (09:31)
[2022-12-16] MEDS: SENNA-S TABLET PO SCH ×2 (09:32→17:11)
[2022-12-16] MEDS: LIDOCAINE 4% PATCH TP SCH (09:32)
[2022-12-16] MEDS: ACETAMINOPHEN/CODEINE 300MG - 30MG TAB PO PRN ×2 (18:01→22:03)
[2022-12-17 00:54] VITALS: BP 134/60; PULSE 58; RESP 18; TEMP 97.9; O2SAT 97
[2022-12-17 04:00] VITALS: BP 150/58; PULSE 60; RESP 18; TEMP 97.8; O2SAT 98
[2022-12-17] MEDS: SODIUM CHLORIDE 0.9% 1000ML 1,000 ML IV SCH (05:17)
[2022-12-17] MEDS: ACETAMINOPHEN/CODEINE 300MG - 30MG TAB PO PRN (06:07)
[2022-12-17] MEDS: INSULIN LISPRO 100 UNIT/1 ML 3ML VIAL SQ SCH ×2 (07:30→11:30)
[2022-12-17 08:21] VITALS: BP 150/58; PULSE 60; RESP 18; TEMP 97.8; O2SAT 98
[2022-12-17] MEDS: LIDOCAINE 4% PATCH TP SCH (08:31)
[2022-12-17] MEDS: TAMSULOSIN HCL 0.4 MG CAP PO SCH (08:31)
[2022-12-17] MEDS: SENNA-S TABLET PO SCH (08:31)
[2022-12-17] MEDS: MINOCYCLINE HCL 50 MG CAP PO SCH (08:32)
[2022-12-17] MEDS: ESCITALOPRAM OXALATE 10 MG TAB PO SCH (08:32)
[2022-12-17] MEDS: GABAPENTIN 100 MG CAP PO SCH (08:32)
[2022-12-17 08:40] VITALS: BP 128/56; PULSE 60; RESP 20; TEMP 98.3; O2SAT 98
[2022-12-17 11:38] LABS: ANION GAP 9.9 mmol/L (8-16); CALCIUM 8.3 mg/dL (8.4-10.2); CREATININE, SERUM 1.35 mg/dL (0.72-1.25); POTASSIUM 4.9 mmol/L (3.5-5.1)
== END 2022-12-17 12:37 | disposition home or self-care (01) | DRG 243 ==
LOC: ER 13:43 → ERHOLD 15:15 → MED/SURG2 18:02 → OBSVTOIN 12-11 08:31
PROVIDERS: ADMIT Internal Medicine; ATTEND Internal Medicine
PROC: 0JH606Z Insertion of Pacemaker, Dual Chamber into Chest Subcutaneous Tissue and Fascia, Open Approach (ICD-10-PCS; principal; 2022-12-12)
PROC: 02H63JZ Insertion of Pacemaker Lead into Right Atrium, Percutaneous Approach (ICD-10-PCS; 2022-12-12)
PROC: 02HK3JZ Insertion of Pacemaker Lead into Right Ventricle, Percutaneous Approach (ICD-10-PCS; 2022-12-12)
DX: I49.5 Sick sinus syndrome (principal); N17.9 Acute kidney failure, unspecified; Z91.81 History of falling; I25.10 Atherosclerotic heart disease of native coronary artery without angina pectoris; I25.2 Old myocardial infarction; K21.9 Gastro-esophageal reflux disease without esophagitis; E78.5 Hyperlipidemia, unspecified; I44.0 Atrioventricular block, first degree; E11.40 Type 2 diabetes mellitus with diabetic neuropathy, unspecified; E66.9 Obesity, unspecified; M79.10 Myalgia, unspecified site; D69.6 Thrombocytopenia, unspecified; Z68.36 Body mass index [BMI] 36.0-36.9, adult; E11.649 Type 2 diabetes mellitus with hypoglycemia without coma; M19.90 Unspecified osteoarthritis, unspecified site; E87.5 Hyperkalemia; E11.22 Type 2 diabetes mellitus with diabetic chronic kidney disease; I12.9 Hypertensive chronic kidney disease with stage 1 through stage 4 chronic kidney disease, or unspecified chronic kidney disease; N18.9 Chronic kidney disease, unspecified; E86.0 Dehydration; Z96.643 Presence of artificial hip joint, bilateral; Z79.02 Long term (current) use of antithrombotics/antiplatelets; Z95.5 Presence of coronary angioplasty implant and graft; Z79.84 Long term (current) use of oral hypoglycemic drugs; Z79.4 Long term (current) use of insulin; Z20.822 Contact with and (suspected) exposure to COVID-19
CPT/HCPCS: 33208; 36415; 71045; 71250; 80048; 80053; 80061; 82550; 82948; 84484; 85025; 85610; 85730; 93005; 93306; 96372; 99152; 99153; 99284; C1769; C1785; C1898; G0378; J1580; J2001; J2250; J2270; J2405; J3410; J7030; J7050; Q0162